=== PATIENT | male | born 1950 | race Hispanic/Latino ===

== ENCOUNTER 2019-11-16 07:47 | Emergency (ER) | payer OTHER ==
[~2019-11-16] VITALS: Ht 170.2 cm; Wt 90.7 kg
--- OUTSIDE RECORDS SUMMARY | 2019-11-16 07:50 | XMS REPORT ---
[facility] Address Unknown Phone Unavailable Care Team Providers Care Bus Attendant Name Role Phone Unavailable Unavailable Payers Payer Name Policy Type Policy Number Effective Date Expiration Date Problems This patient has no known problems. Allergies, Adverse Reactions, Alerts Allergy Name Allergy Type Status Severity Reaction(s) Onset Date Inactive Date Treating Clinician Comments No Known Contrast Allergies DA Active U 2008-10-22 00:00:00 No Known Drug Allergies DA Active U 2008-10-22 00:00:00 No Known Food Allergies DA Active U 2008-10-22 00:00:00 No Known Other Allergies DA Active U 2008-10-22 00:00:00 No Known Drug Intolerances DA Active U 2008-10-19 00:00:00 Medications This patient has no known medications. Results Test Description Test Time Test Comments Text Results Atomic Results Result Comments BASIC METABOLIC PANEL 2019-08-28 17:09:00 SODIUM (test code=NA) 140 mmol/L 136-145 POTASSIUM (test code=K) 4.0 mmol/L 3.5-5.1 CHLORIDE (test code=CL) 107.0 mmol/L 98-107 CARBON DIOXIDE (test code=CO2) 31.0 mmol/L 21-32 ANION GAP (test code=GAP) 6.0 10-20 GLUCOSE (test code=GLU) 112 mg/dL 74-106 BLOOD UREA NITROGEN (test code=BUN) 21 mg/dL 7-18 GLOMERULAR FILTRATION RATE (test code=GFR) 55 mL/min >=60 Estimated GFR by using Modified MDRD formula.Chronic kidney disease is defined as either kidney damageor GFR <60 mL/min/1.73 m2 for >3 months. CREATININE (test code=CREAT) 1.30 mg/dL 0.7-1.3 BUN/CREATININE RATIO (test code=BUN/CREA) 16.2 10-20 CALCIUM (test code=CA) 9.0 mg/dL 8.5-10.1 LIPID PROFILE (CORONARY RISK)2019-08-28 17:09:00* Test Item Value Reference Range Comments TRIGLYCERIDES (test code=TRIG) 148 mg/dL 20-150 CHOLESTEROL (test code=CHOL) 127 mg/dL 0-200 CHOLESTEROL/HDL RATIO (test code=CHOLHDL) 3.0 RATIO 0-4.9 RISK ASSOCIATED WITH CHOL/HDL RATIOS: Risk Male Female1/2 AVERAGE 3.43 3.27AVERAGE 4.97 4.442X AVERAGE 9.55 7.053X AVERAGE 23.39 11.04 REFERENCE VALUE IS RELATED TO RISK LEVELS ASRECOMMENDED BY THE HEIDI. HEART, LUNG, AND BLOOD INST. HDL CHOLESTEROL (test code=HDL) 32 mg/dL 40-60 LIPOPROTEIN LDL (test code=LDL) 79 mg/dL 100-129 Reference Interval: mg/dL mmol/L Optimal <100 <2.6Near/above optimal 100-129 2.6- 3.3Borderline High 130-159 3.4-4.1High 160-189 4.1-4.9Very High >=190 >=4.9=========This LDL result is a direct measurement.========= HEPATIC FUNCTION [id number] 17:09:00* Test Item Value Reference Range Comments TOTAL PROTEIN (test code=PROT) 7.1 gram/dL 6.4-8.2 ALBUMIN (test code=ALB) 3.8 g/dL 3.4-5.0 GLOBULIN (test code=GLOB) 3.3 gram/dL 2.7-4.2 ALBUMIN/GLOBULIN RATIO (test code=A/G) 1.2 0.75-1.50 BILIRUBIN TOTAL (test code=BILT) 0.80 mg/dL 0.0-1.0 BILIRUBIN DIRECT (test code=BILD) 0.12 mg/dL 0.0-0.20 SGOT/AST (test code=AST) 30 IUnit/L 15-37 SGPT/ALT (test code=ALT) 35 IUnit/L 12-78 ALKALINE PHOSPHATASE TOTAL (test code=ALKP) 74 IUnit/L 45-117 Note change in reference range due to change in reagent. BASIC METABOLIC [id number] 16:53:00* Test Item Value Reference Range Comments SODIUM (test code=NA) 140 mmol/L 136-145 POTASSIUM (test code=K) 4.0 mmol/L 3.5-5.1 CHLORIDE (test code=CL) 107.0 mmol/L 98-107 CARBON DIOXIDE (test code=CO2) mmol/L 21-32 ANION GAP (test code=GAP) 10-20 GLUCOSE (test code=GLU) mg/dL 74-106 BLOOD UREA NITROGEN (test code=BUN) mg/dL 7-18 GLOMERULAR FILTRATION RATE (test code=GFR) mL/min >=60 CREATININE (test code=CREAT) mg/dL 0.7-1.3 BUN/CREATININE RATIO (test code=BUN/CREA) 10-20 CALCIUM (test code=CA) mg/dL 8.5-10.1 LIPID PROFILE (CORONARY RISK)2019-08-28 16:53:00* Test Item Value Reference Range Comments TRIGLYCERIDES (test code=TRIG) mg/dL 20-150 CHOLESTEROL (test code=CHOL) mg/dL 0-200 CHOLESTEROL/HDL RATIO (test code=CHOLHDL) RATIO 0-4.9 HDL CHOLESTEROL (test code=HDL) mg/dL 40-60 LIPOPROTEIN LDL (test code=LDL) mg/dL 100-129 HEPATIC FUNCTION [id number] 16:53:00* Test Item Value Reference Range Comments TOTAL PROTEIN (test code=PROT) gram/dL 6.4-8.2 ALBUMIN (test code=ALB) g/dL 3.4-5.0 GLOBULIN (test code=GLOB) gram/dL 2.7-4.2 ALBUMIN/GLOBULIN RATIO (test code=A/G) 0.75-1.50 BILIRUBIN TOTAL (test code=BILT) mg/dL 0.0-1.0 BILIRUBIN DIRECT (test code=BILD) mg/dL 0.0-0.20 SGOT/AST (test code=AST) IUnit/L 15-37 SGPT/ALT (test code=ALT) IUnit/L 12-78 ALKALINE PHOSPHATASE TOTAL (test code=ALKP) IUnit/L 45-117 CBC W/AUTO [id number] 16:45:00* Test Item Value Reference Range Comments WHITE BLOOD CELL (test code=WBC) 7.8 K/mm3 4.5-12.5 RED BLOOD CELL (test code=RBC) 5.39 mill/mm3 4.0-5.8 HEMOGLOBIN (test code=HGB) 16.4 gram/dL 13.0-17.5 HEMATOCRIT (test code=HCT) 47.9 % 42.0-52.0 MEAN CELL VOLUME (test code=MCV) 88.9 fL 80-98 MEAN CELL HGB (test code=MCH) 30.4 picogram 27.0-33.0 MEAN CELL HGB CONCETRATION (test code=MCHC) 34.2 gram/dL 33.0-36.0 RED CELL DISTRIBUTION WIDTH (test code=RDW) 12.0 % 11.6-16.2 RED CELL DISTRIBUTION WIDTH SD (test code=RDW-SD) 38.9 fL 37.0-51.0 PLATELET COUNT (test code=PLT) 199 K/mm3 150-450 MEAN PLATELET VOLUME (test code=MPV) 9.8 fL 6.7-11.0 NEUTROPHIL % (test code=NT%) 73.3 % 39.0-69.0 IMMATURE GRANULOCYTE % (test code=IG%) 2.3 % 0.0-5.0 LYMPHOCYTE % (test code=LY%) 15.6 % 25.0-55.0 MONOCYTE % (test code=MO%) 7.2 % 0.0-10.0 EOSINOPHIL % (test code=EO%) 0.8 % 0.0-5.0 BASOPHIL % (test code=BA%) 0.8 % 0.0-1.0 NUCLEATED RBC % (test code=NRBC%) 0.0 % 0-0 NEUTROPHIL # (test code=NT#) 5.68 K/mm3 1.8-7.7 IMMATURE GRANULOCYTE # (test code=IG#) 0.18 x10 3/uL 0-0.03 LYMPHOCYTE # (test code=LY#) 1.21 K/mm3 1.0-5.0 MONOCYTE # (test code=MO#) 0.56 K/mm3 0-0.8 EOSINOPHIL # (test code=EO#) 0.06 K/mm3 0.0-0.5 BASOPHIL # (test code=BA#) 0.06 K/mm3 0.0-0.2 NUCLEATED RBC # (test code=NRBC#) 0.00 K/mm3 0.0-0.1 - XR CHEST 2 [id number] 16:10:00 FAX: Rogelio Narvaez MD [phone] [place]: O St: REG FAX: Ronald Olivo MD [phone] Name: LUCIO ZAMAN [facility] : 1950 Age/S: 69/M [address] Unit #: [id number] Loc: [place] [address] Phys: Ronald Kapoor MD Acct: [id number] Dis Date: Status: REG CLI PHONE #: [phone] Exam Date: 08/28/2019 [facility] FAX #: [phone] Reason: COUGH EXAMS: CPT CODE: [id number] XR CHEST 2 V [id number] REASON FOR EXAM: COUGH Exam Order Date: 08/28/2019 3:05 PM Ordering MSarwat: Ronald Kapoor MD PROCEDURE: - XR CHEST 2 V COMPARISON: 2 view chest x-ray September 02, 2016 FINDINGS: The lungs are clear. There is no pleural effusion or pneumothorax. Pulmonary vascularity is within normal limits. Cardiomediastinal silhouette is normal in size for technique. The mediastinal contours are within normal limits. Degenerative c hanges are present in the spine. The visualized upper abdomen is w ithin normal limits. IMPRESSION: No acute cardio pulmonary process. Location: [facility] Electronically Si gned by Garrett Garcia MD on 08/28/2019 at 1610 Reported an d signed by: Garrett Garcia MD CC: Rogelio Raymond MD; Ronald Kapoor MD Technologist: RT Dorothy(Lara) Trnscrd Date/Time/By: 08/28/2019 (1610) : By: [email or web address] Orig P rint D/T: S: 08/28/2019 ([id number]) PAGE 1 Signed Report
[2019-11-16 08:46] LABS: BILIRUBIN,URINE NEGATIVE (NEGATIVE); CLARITY,URINE CLEAR (CLEAR); COLOR,URINE YELLOW (YELLOW); KETONES,URINE NEGATIVE (NEGATIVE); LEUKOCYTE ESTERASE ,URINE NEGATIVE (NEGATIVE); NITRITE,URINE NEGATIVE (NEGATIVE); PROTEIN,URINE DIPSTICK NEGATIVE (NEGATIVE); URINE UROBILINOGEN 0.2 mg/dL (0.2 - 1)
[2019-11-16 09:03] LABS: BACTERIA,URINE RARE /HPF; EPITHELIAL CELLS,URINE RARE /LPF; WBC,URINE (MAN) 0-5 /HPF (0-5)
--- NOTE | 2019-11-16 09:22 | Diagnostic Imaging Report ---
EXAM: SP LUMBAR, COMPLETE MIN 4VW DATE: 11/16/2019 8:05 AM INDICATION: Back pain COMPARISON: None FINDINGS: There are 5 nonrib-bearing lumbar-type vertebral bodies. Lumbar spinal alignment is within normal limits. There is no evidence for acute fracture or dislocation. No focal lytic or blastic abnormality is identified. There are degenerative changes present most prominent at L4-L5 and L5-S1 where there is intervertebral disc space narrowing and suspected facet arthropathy. Suspected phleboliths noted within the pelvis. The remaining visualized intrapelvic contents are unremarkable. IMPRESSION: No acute radiographic abnormality identified within the lumbar spine. Degenerative changes as above. Signed by: Dr. Marcelo Alexis MD on 11/16/2019 9:18 AM
[2019-11-16] MEDS ORDERED: LIDOCAINE 4% PATCH TP SCH (10:00)
[2019-11-16] MEDS ORDERED: RIFAMPIN150 MG (10:07)
[2019-11-16] MEDS ORDERED: DAPSONE100 MG (10:08)
[2019-11-16] MEDS ORDERED: ISONIAZID300 MG PO (10:08)
[2019-11-16] MEDS ORDERED: FUROSEMIDE40 MG PO (10:09)
[2019-11-16] MEDS ORDERED: B-6200 MG (10:10)
[2019-11-16] MEDS ORDERED: MONTELUKAST SOD10 MG PO (10:11)
[2019-11-16] MEDS ORDERED: FAMOTIDINE20 MG PO (10:12)
[2019-11-16] MEDS ORDERED: VALACYCLOVIR1000 MG (10:16)
[2019-11-16] MEDS ORDERED: AMOXICILLIN-CL1 EACH (10:18)
[2019-11-16] MEDS ORDERED: PREDNISONE10 MG PO (10:19)
[2019-11-16] MEDS ORDERED: OMEPRAZOLE40 MG (10:19)
[2019-11-16] MEDS ORDERED: VITAMIN E400 UNI1 (10:20)
[2019-11-16 10:25] VITALS: BP 107/57
== END 2019-11-16 10:56 | disposition home or self-care (01) ==
LOC: ER 07:47
DX: S39.012A Strain of muscle, fascia and tendon of lower back, initial encounter (principal); M54.31 Sciatica, right side; M47.26 Other spondylosis with radiculopathy, lumbar region; G89.29 Other chronic pain
CPT/HCPCS: 72110; 81001; 99283